=== PATIENT | female | born 1975 | race Caucasian/White ===

== ENCOUNTER 2023-08-10 08:13 | Emergency (ER) | payer OTHER ==
[2023-08-10] MEDS ORDERED: IBUPROFEN 400 MG TABLET (FP) PO ONE ×2 (08:19→08:29)
[2023-08-10 08:34] VITALS: BP 127/79; PULSE 84; RESP 17; TEMP 97.3; BMI 28.9
== END 2023-08-10 09:17 | disposition home or self-care (01) ==
LOC: JERFT 08:13
DX: M25.571 Pain in right ankle and joints of right foot (principal); R22.41 Localized swelling, mass and lump, right lower limb; S93.401A Sprain of unspecified ligament of right ankle, initial encounter; W18.39XA Other fall on same level, initial encounter
CPT/HCPCS: 73610-TC-RT-FY; 99283-25